=== PATIENT | male | born 1985 | race Caucasian/White ===

== ENCOUNTER 2024-11-10 21:26 | Emergency (ER) | payer BC | END 2024-11-11 00:42 | disposition left against medical advice (07) | LOC: ER 21:28 | DX: S41.119A Laceration without foreign body of unspecified upper arm, initial encounter (principal); R11.10 Vomiting, unspecified; Z53.21 Procedure and treatment not carried out due to patient leaving prior to being seen by health care provider; X58.XXXA Exposure to other specified factors, initial encounter; Y93.89 Activity, other specified; Y92.89 Other specified places as the place of occurrence of the external cause; Y99.8 Other external cause status ==